=== PATIENT | female | born 1990 | race Hispanic/Latino ===

== ENCOUNTER 2017-07-28 17:28 | Observation (INO) | payer SELFPAY ==
[2017-07-28 19:56] LABS: Hemoglobin 7.8 g/dL (12.0-16.0)
--- NOTE | 2017-07-28 20:28 | ULT ---
PELVIC SONOGRAM TRANSABDOMINAL AND TRANSVAGINAL IMAGING WITH DUPLEX EVALUATION 07/28/17 HISTORY: Pelvic bleeding. Pain. FINDINGS: The urinary bladder is unremarkable. The uterus has a heterogeneous echotexture and is 9.2 cm. Endome trium is 0.8 cm. Nabothian cysts arise from the cervix. No free fluid is evident. Right ovary is 3.4 cm. Left is 2.4 cm. Each has a normal sonographic appearance and demonstrates good color and spectral doppler flow. IMPRESSION: Normal pelvic sonogram. POS: AGUSTINA
[2017-07-28] MEDS ORDERED: diphenhydrAMINE 25 MG CAP PO SCH (20:45)
[2017-07-28] MEDS ORDERED: Acetaminophen 325 MG TAB PO SCH (20:45)
[2017-07-28] MEDS ORDERED: Dextrose 5%-Lactated Ringers 1,000 ML IV SCH (20:45)
[2017-07-28 20:52] VITALS: BMI 28.6
[2017-07-28] MEDS: Tranexamic Acid 650 MG TAB PO SCH (21:33)
[2017-07-28] MEDS: medroxyPROGESTERone Acetate 5 MG TAB PO SCH (21:35)
[2017-07-28] MEDS ORDERED: Sodium Chloride 0.9% 10 ML ONE ×2 (22:10→23:59)
--- NOTE | 2017-07-29 01:25 | HP ---
DATE OF ADMISSION: 07/28/2017 ADMITTING PHYSICIAN: Willard Sheehan M.D. CHIEF COMPLAINT: Vaginal bleeding. HISTORY OF PRESENT ILLNESS: Ms. Cabrera is a 26-year-old female, G4, P3-0-1-3 last normal menstrual period 3 months ago, who presents as a transfer from [facility] for vaginal bleeding. She states that she has had continued vaginal bleeding in the form of heavy menstrual cycle since at least May. She states that she has had this period off and on since she had her period. She has been on control pills for this in the past and has done well. At this point, she is evaluated by the ER here and it seemed to have hemoglobin of 5.1. PAST OBSTETRICAL HISTORY: Remarkable for 3 previous C-sections. She has also had 1 spontaneous miscarriage. PAST MEDICAL HISTORY: Unremarkable. PAST SURGICAL HISTORY: x3. CURRENT MEDICATIONS: None. ALLERGIES: None. SOCIAL HISTORY: She smokes, but denies alcohol or drug use. REVIEW OF SYSTEMS: She reports feeling weak, but she denies chest pain, shortness of breath. She reports vaginal bleeding, but denies abdominal pain or change in bowel or bladder habits. PHYSICAL EXAMINATION: LUNGS: Clear to auscultation. CARDIOVASCULAR: Regular rate and rhythm. ABDOMEN: Soft and nontender. PELVIC: There is old dark blood in the vault. Her cervix is easily seen and there are no lesions. On bimanual exam, her uterus appears normal in size. Cultures are obtained. LABORATORY DATA: Hemoglobin is 5.1, hematocrit 16.2. Beta hCG is negative. Formal ultrasound is pending. Verbal report is that it is nonfocal. ASSESSMENT: 1. Severe anemia. 2. Menorrhagia. PLAN: The patient will be admitted at this time for transfusion in an attempt to control her bleeding with both Lysteda and Provera. She obtained 1 unit of packed red cells in the ER and she will obtain a second unit and then we will repeat her H and H. She will be observed closely. BENITAD
--- NOTE | 2017-07-29 06:41 | PRG ---
DATE OF SERVICE: 07/29/2017 SUBJECTIVE: The patient feels better this morning. She denies headache or dizziness. OBJECTIVE: VITAL SIGNS: Stable. Her blood pressure is 89/50, her pulse is 64. Her temperature is 98.2 and her O2 sat is 100% on nasal cannula. ABDOMEN: Her abdomen remains soft. There is minimal vaginal bleeding. LABORATORY DATA: Hemoglobin and hematocrit after her first unit were 7.8 and 23.9 respectively. ASSESSMENT: 1. Longstanding menometrorrhagia. 2. Severe anemia, now status post a second unit of packed red blood cells. PLAN: An H&H is pending from this morning and should that be okay, it is possible that she could be discharged home for followup in the clinic. NITHIN
[2017-07-29 08:08] LABS: Hemoglobin 8.7 g/dL (12.0-16.0)
[2017-07-29] MEDS: Tranexamic Acid 650 MG TAB PO SCH (09:14)
[2017-07-29] MEDS: medroxyPROGESTERone Acetate 5 MG TAB PO SCH (09:15)
[2017-07-29 11:31] VITALS: BP 101/73; TEMP 99
--- NOTE | 2017-07-29 12:56 | DIS ---
DATE OF ADMISSION: 07/28/2017 DATE OF DISCHARGE: 07/29/2017 DATE OF ENCOUNTER: 07/29/2017 ADMITTING DIAGNOSES: 1. Severe anemia. 2. Menorrhagia. DISCHARGE DIAGNOSES: 1. Severe anemia. 2. Menorrhagia. CONSULTATIONS: ELECTRONICS TECH. HOSPITAL COURSE: Patient is a 26-year-old female who was seen in the emergency room for heavy bleedi ng for the last month and was noted in the [place] ER to have a hemoglobin of 5.1. She was transfu sed 1 unit of packed red blood cells and transferred to [facility] in [place], [place] for further manage ment. He has been transfused the second unit of packed red blood cells and spontaneously bleeding ward s slowed. After the second unit of packed red blood cells, the patient's hemoglobin was 8.7 and katrina tocrit 26.3. When I visited her this morning, she reports she is feeling better and that her bleedin g has discontinued spontaneously. She reports that she has a few periods a year and will skip severa l months at a time, this most recent period started the end of May and just now discontinued. Lo oking through the record, it appears she has been on control in the past for this problem. The patient denies any dizziness, lightheadedness. She reports she has been up to the bathroom witho ut any problems. PHYSICAL EXAMINATION: VITAL SIGNS: Today blood pressure is 94/52, pulse of 67, temperature 98.8, satting 100% on room air with respiratory rate of 16. GENERAL: She appears to be in no acute distress. She is alert and oriented, cooperative and pleasan t to interact with. HEENT: Normocephalic, atraumatic. The patient will be discharged to home. She has a prescription for iron and Lysteda. I have given i nstructions as long as she is not having any significant bleeding, the Lysteda is not necessary to ta ke immediately. She has also been given instructions to follow up with her primary doctor Dr. Funes in the next few days for outpatient workup of her menorrhagia and oligomenorrhea. The ultrasound fin dings with this hospitalization showed a normal sized uterus with no evidence of fibroids and an endo metrial stripe of 8 mm. All within normal limits.
[2017-07-31 14:35] LABS: Chlamydia by PCR Not Detected (NotDetected); GC by PCR Not Detected (NotDetected)
== END 2017-07-29 11:55 | disposition home or self-care (01) ==
LOC: ERS 17:28 → 3SE 20:28
PROVIDERS: ADMIT Obstetrics & Gynecology; ATTEND Obstetrics & Gynecology
DX: N92.0 Excessive and frequent menstruation with regular cycle (principal); D64.9 Anemia, unspecified; F17.200 Nicotine dependence, unspecified, uncomplicated; Z88.0 Allergy status to penicillin; Z98.891 History of uterine scar from previous surgery; Z87.59 Personal history of other complications of pregnancy, childbirth and the puerperium
CPT/HCPCS: 36415; 36430; 76856; 85014; 85018; 86850; 86900; 86901; 86921; 87491; 87591; 96360; 96361; A4216; G0378; P9016